=== PATIENT | male | born 1965 | race Two or more races ===

== ENCOUNTER → 2016-06-25 | Outpatient (CLI) | payer OTHER ==
--- NOTE | 2016-06-26 18:47 | RADRPT ---
PROCEDURE: XR Knees. CLINICAL INDICATION: Bilateral knee pain. TECHNIQUE: Total of eight views. Weightbearing frontal, oblique, and lateral views of the both kn ees. Patellar views of both knees. COMPARISON: No prior study is available for comparison. FINDINGS: There is no fracture or dislocation. The soft tissues are normal. There are degenerative changes with osteophytes arising from all 3 joint compartment margins bilater ally. There is bilateral medial joint compartment narrowing, subarticular sclerosis, and deformity. There is no lytic or blastic lesion. There is no radiopaque foreign body. IMPRESSION: 1. Severe degenerative changes of both knees. RPTAT: QQ .Edmar Bermeo MD, MD Date Time Electronically viewed and signed by .Edmar Bermeo MD, MD on 06/26/2016 18:46 .R/
== END | disposition home or self-care (01) ==
LOC: HKI 14:49
PROVIDERS: ATTEND Orthopaedic Surgery
DX: M25.561 Pain in right knee (principal); M25.562 Pain in left knee; M17.0 Bilateral primary osteoarthritis of knee; E66.01 Morbid (severe) obesity due to excess calories
CPT/HCPCS: 73564; Z7500; G0463

== ENCOUNTER 2016-09-16 04:21 | Inpatient (IN) | payer OTHER ==
[~2016-09-16] VITALS: Ht 175.3 cm; Wt 122.0 kg
[2016-09-16] MEDS ORDERED: ONDANSETRON 4 MG INJ IV STA (04:45)
[2016-09-16] MEDS ORDERED: HYDROmorphONE 1 MG/ML SYG IV STA (04:45)
[2016-09-16] MEDS ORDERED: ERTAPENEM SODIUM 1 GM in SOD CHLORIDE 0.9% 100 ML IVPB ONE (05:00)
--- NOTE | 2016-09-16 05:02 | ERA ---
ER Documentation Chief Complaint Date/Time DATE: 09/16/16 TIME: 04:59 Chief Complaint left lower leg swelling w/ redness / warm to touch HPI This a 51-year-old male who is complaining of fever over the past 3 days with gradual worsening of right leg swelling and redness. When the pain redness from the proximal left house down to the left ankle. Denies any chest pain or shortness of breath. No history of DVT in the past. He said chills and malaise with a somewhat lack of appetite. No numbness or weakness in the leg. ROS All systems reviewed and are negative except as per history of present illness. Medications Home Meds No Active Prescriptions or Reported Meds Allergies Allergies: Coded Allergies: No Known Allergy (Unverified , 09/16/16) PMhx/Soc Medical and Surgical Hx: pt denies Medical Hx, pt denies Surgical Hx History of Surgery: No Anesthesia Reaction: No Hx Neurological Disorder: No Hx Respiratory Disorders: No Hx Cardiac Disorders: No Hx Psychiatric Problems: No Hx Miscellaneous Medical Probl: No Hx Alcohol Use: No Hx Substance Use: No Hx Tobacco Use: No Smoking Status: Former smoker FmHx Family History: No coronary disease Physical Exam Vitals Vital Signs Date Time Temp Pulse Resp B/P Pulse Ox O2 Delivery O2 Flow Rate FiO2 09/16/16 04:27 98.8 106 20 148/103 100 Physical Exam Const: Well-developed, well-nourished Head: Atraumatic, normocephalic Eyes: Normal Conjunctiva, PERRLA, EOMI, normal sclera, no nystagmus ENT: Normal External Ears, Nose and Mouth, moist mucus membranes. Neck: Full range of motion. No meningismus, no lymphadenopathy. Resp: Clear to auscultation bilaterally, no wheezing, rhonchi, rales Cardio: Regular rate and rhythm, no murmurs, S1 S2 present Abd: Soft, non tender x 4, non distended. Normal bowel sounds, no guarding or rebound, no pulsitile abdominal masses or bruits Skin: No petechiae or rashes, no ecchymosis , no maculopapular rash, there is erythema of the left house that is not finally demarcated Back: No midline or flank tenderness Ext: No cyanosis, or edema, FROM x 4, normal inspection, neurovascularly intact x 4 left leg has cellulitic appearance to the house that is warm and tender to touch, is circumferential Neur: Awake and alert, STR 5/5 x 4, sensation intact x 4, no focal findings, cerebellum intact Psych: Normal Mood and Affect Results 24 hrs Current Medications Medications (Trade) Dose Ordered Sig/Joseph Route PRN Reason Start Time Stop Time Status Last Admin Dose Admin Hydromorphone HCl (Dilaudid) 1 mg ONCE STAT IV 09/16/16 04:45 09/16/16 04:47 DC 09/16/16 05:13 Ondansetron HCl 4 mg 4 mg ONCE STAT IV 09/16/16 04:45 09/16/16 04:47 DC 09/16/16 05:12 Ertapenem/Sodium Chloride (Invanz/NS) 100 ml @ 200 mls/hr ONCE ONCE IVPB 09/16/16 05:00 09/16/16 05:29 DC Procedures/MDM Patient had blood work blood cultures, he also received intravenous Invanz 1 g IV We will obtain a sonogram to confirm there is no DVT. We will admit for left leg circumferential cellulitis Sonogram of the left leg does not reveal any DVT. Departure Diagnosis: Primary Impression: Left leg cellulitis Condition: Stable ASA SHERIDAN DO Sep 16, 2016 05:01
[2016-09-16 05:40] LABS: ADD SCAN DIFF NO
[2016-09-16 05:41] LABS: ABNORMAL IP MESSAGE 1; BASOPHILS % 0.2 % (0.0-2.0); EOSINOPHILS # 0.3 10^3/ul (0.0-0.5); EOSINOPHILS % 2.2 % (0.0-7.0); HEMATOCRIT 37.1 % (42.0-52.0); HEMOGLOBIN 12.2 g/dl (14.0-18.0); LYMPHOCYTES % 15.9 % (15.0-51.0); MEAN CORPUSCULAR HEMOGLOBIN 29.8 pg (29.0-33.0); MEAN CORPUSCULAR HGB CONC 32.9 g/dl (32.0-37.0); MEAN CORPUSCULAR VOLUME 90.7 fl (82.0-101.0); MEAN PLATELET VOLUME 9.4 fl (7.4-10.4); MONOCYTES % 16.1 % (0.0-11.0); NEUTROPHILS % 64.4 % (39.0-77.0); PLATELET COUNT 286 10^3/UL (140-415); RED BLOOD COUNT 4.09 10^6/ul (4.70-6.10); RED CELL DISTRIBUTION WIDTH 12.2 % (11.5-14.5); WHITE BLOOD COUNT 12.4 10^3/ul (4.8-10.8)
[2016-09-16 06:00] LABS: ALBUMIN 3.3 g/dl (3.3-4.9); ALBUMIN/GLOBULIN RATIO 0.7; BILIRUBIN,INDIRECT 0.2 mg/dl (0-1.1); BILIRUBIN,TOTAL 0.2 mg/dl (0.2-1.3); CALCIUM 8.4 mg/dl (8.4-10.2); CREATININE 1.17 mg/dl (0.61-1.24); POTASSIUM 3.6 mmol/L (3.5-5.1)
[2016-09-16] MEDS ORDERED: ACETAMINOPHEN 325 MG TAB PO PRN (06:00)
[2016-09-16] MEDS ORDERED: ONDANSETRON 4 MG INJ IV PRN ×2 (06:00→08:30)
--- NOTE | 2016-09-16 06:11 | RADRPT ---
PROCEDURE: ULTRASOUND LEFT LOWER EXTREMITY VENOUS CLINICAL INDICATION: 51-year-old male with left lower extremity pain and swelling. TECHNIQUE: Multiple sonographic images of the left lower extremity deep venous system was obtained utilizing grayscale, color-flow, compressive sonography and doppler imaging with augmentation. The images were reviewed on a PACS workstation. COMPARISON: None. FINDINGS: There is normal compressibility and flow within the left common femoral, deep femoral, superficial f emoral, popliteal, posterior tibial and peroneal veins. IMPRESSION: No sonographic evidence for left lower extremity deep venous thrombosis. .Chuckie Fernández MD, MD Date Time Electronically viewed and signed by .Chuckie Fernández MD, on 09/16/2016 06:11 .Roxanna
[2016-09-16 06:36] VITALS: TEMP 98.1
[2016-09-16] MEDS ORDERED: VANCOMYCIN IV PER PHARMACY XX SCH (08:30)
[2016-09-16] MEDS ORDERED: NACL 0.9% 3 ML SYG IV SCH (08:30)
[2016-09-16] MEDS ORDERED: ALBUTEROL/IPRATROPIUM (NEB) 3 ML AMP HHN PRN (08:30)
[2016-09-16 08:47] VITALS: BP 129/82; RESP 19
[2016-09-16] MEDS ORDERED: CEFEPIME 1GM/50 ML (PMX) 50 ML IVPB SCH (09:00)
[2016-09-16 09:20] VITALS: Ht 175.3 cm; Wt 122.0 kg
--- NOTE | 2016-09-16 09:41 | HP ---
Date/Time of Note Date/Time of Note DATE: 09/16/16 TIME: 09:33 Assessment/Plan VTE Prophylaxis VTE Prophylaxis Intervention: heparin Lines/Catheters IV Catheter Type (from Nrsg): Saline Lock Assessment/Plan Assessment/Plan IMPRESSION 1. LLE Cellulitis 2. Sepsis, as evidenced by leukocytosis and tachycardia 2/2 above 3. Severe Bilateral Osteoarthritis 4. Hx of Gastritis 5. Morbid Obesity with BMI of ~ 40 PLAN Broad spectrum abx f/u culture results pain mgmt pt being followed with Dr. Blevins regarding osteo. He has been losing weight in order to have knee replacement Physical Therapy Eval HPI/ROS Admit Date/Time Admit Date/Time Sep 16, 2016 at 05:44 Hx of Present Illness This is a 51 yo morbidly obese male with hx of severe bilateral osteoarthritis, gastritis who presented to ER c/o LLE swelling, redness and pain. Symptom has gotten progressively worse over the last few days. Denied CP, SOB, fever, chills , N/V. In ER doppler u/s was neg for DVT. He was given abx. PMH/Family/Social Social History Smoking Status: Former smoker Exam/Review of Systems Vital Signs Vitals Vital Signs Date Time Temp Pulse Resp B/P Pulse Ox O2 Delivery O2 Flow Rate FiO2 09/16/16 08:47 97.6 82 19 129/82 98 09/16/16 06:36 Nasal Cannula 2.0 Exam Constitutional: alert, oriented, other (obese) Head: atraumatic, normocephalic Eyes: EOMI, PERRL Respiratory: clear to auscultation, normal air movement Cardiovascular: other (tachycardic with regular rhythm) Gastrointestinal: non-tender, soft Extremities: other (LLE circumfirential erythema, swelling, tenderness, warmth to touch) Labs Result Diagram: 09/16/16 0510 09/16/16 0510 Medications Medications Current Medications Ondansetron HCl (Zofran Inj) 4 mg Q6H PRN IV NAUSEA AND/OR VOMITING; Start at 08:30 Acetaminophen (Tylenol Tab) 650 mg Q6H PRN PO PAIN LEVEL 1-3 OR FEVER; Start at 08:30 Morphine Sulfate (morphine) 2 mg Q4H PRN IV SEVERE PAIN LEVEL 7-10; Start 09/16 at 08:30 Enoxaparin Sodium 40 mg 40 mg DAILY SC ; Start 09/16/16 at 09:00 Cefepime HCl (Maxipime 1gm/50 ml (Pmx)) 50 ml @ 100 mls/hr Q12 IVPB ; Start at 09:00 JESSIE BALBUENA MD Sep 16, 2016 09:41
[2016-09-16] MEDS: ENOXAPARIN 40 MG/0.4 ML SYG SC SCH (09:45)
[2016-09-16] MEDS ORDERED: POTASSIUM CHLORIDE (SR) 20 MEQ TAB PO STA (10:34)
[2016-09-16] MEDS ORDERED: VANCOMYCIN 2 GM in SOD CHLORIDE 0.9% 500 ML IVPB SCH ×2 (12:00→18:00)
[2016-09-16] MEDS: ACETAMINOPHEN 325 MG TAB PO PRN (14:25)
[2016-09-16] MEDS: PIPER-TAZO 3.375 GM IV (PMX) 100 ML IVPB SCH ×2 (14:25→21:46)
[2016-09-16 14:45] VITALS: BP 134/86; RESP 21
--- NOTE | 2016-09-16 16:42 | PN ---
Date/Time of Note Date/Time of Note DATE: 09/16/16 TIME: 16:38 Assessment/Plan VTE Prophylaxis VTE Prophylaxis Intervention: LMWH Lines/Catheters IV [facility] Saline Lock Assessment/Plan Chief Complaint/Hosp Course Patient is a 51-year-old male with past medical history of osteoarthritis who presents to [facility] for left-sided lower extremity swelling and pain. Found to have cellulitis. Assessment Left lower extremity cellulitis Sepsis, resolving Severe bilateral ostia arthritis Lower extremity edema Morbid obesity Plan -Broad-spectrum antibiotics for now -No purulence or area for wound culture found -Pending echo -If patient remains stable for 24 hours will DC with oral antibiotics to follow- up with outpatient physician. Bryan Ayoub DO Problems: Subjective 24 Hr Interval Summary Free Text/Dictation no acute complaints except for leg pain. Exam/Review of Systems Vital Signs Vitals Vital Signs Date Time Temp Pulse Resp B/P Pulse Ox O2 Delivery O2 Flow Rate FiO2 09/16/16 14:45 98.7 96 21 134/86 95 09/16/16 06:36 Nasal Cannula 2.0 Exam Physical exam General: Patient is laying in bed and answers questions appropriately Mentation: Patient is alert and oriented 4, Head: Normocephalic atraumatic Eyes: EOMI, pupils reactive to light Neck: Supple, nontender, midline Respiratory: Clear to auscultation bilaterally Cardiovascular: regular rate, no obvious murmurs Gastrointestinal: non-tender to palpation, bowel sounds heard. Neurological: Moves all extremities spontaneously Skin: RLE mild 2+ edema, LLE erythematous and edematous, enlarged. demarcated line drawn. Results Result Diagram: 09/16/16 0510 09/16/16 0510 Results 24 hrs Laboratory Tests Test 09/16/16 05:10 White Blood Count 12.4 H Red Blood Count 4.09 L Hemoglobin 12.2 L Hematocrit 37.1 L Mean Corpuscular Volume 90.7 Mean Corpuscular Hemoglobin 29.8 Mean Corpuscular Hemoglobin Concent 32.9 Red Cell Distribution Width 12.2 Platelet Count 286 Mean Platelet Volume 9.4 Neutrophils % 64.4 Lymphocytes % 15.9 Monocytes % 16.1 H Eosinophils % 2.2 Basophils % 0.2 Nucleated Red Blood Cells % 0.0 Neutrophils # 8.0 H Lymphocytes # 2.0 Monocytes # 2.0 H Eosinophils # 0.3 Basophils # 0.0 Nucleated Red Blood Cells # 0.0 Sodium Level 145 H Potassium Level 3.6 Chloride Level 102 Carbon Dioxide Level 29 Anion Gap 18 H Blood Urea Nitrogen 17 Creatinine 1.17 Glucose Level 89 Calcium Level 8.4 Total Bilirubin 0.2 Direct Bilirubin 0.00 Indirect Bilirubin 0.2 Aspartate Amino Transf (AST/SGOT) 49 H Alanine Aminotransferase (ALT/SGPT) 58 Alkaline Phosphatase 298 H Total Protein 8.0 Albumin 3.3 Globulin 4.70 H Albumin/Globulin Ratio 0.70 Medications Medications Current Medications Ondansetron HCl (Zofran Inj) 4 mg Q6H PRN IV NAUSEA AND/OR VOMITING; Start at 08:30 Acetaminophen (Tylenol Tab) 650 mg Q6H PRN PO PAIN LEVEL 1-3 OR FEVER Last administered on 09/16/16 14:25; Admin Dose 650 MG; Start 09/16/16 at 08:30 Morphine Sulfate (morphine) 2 mg Q4H PRN IV SEVERE PAIN LEVEL 7-10; Start 09/16 at 08:30 Enoxaparin Sodium 40 mg 40 mg DAILY SC Last administered on 09/16/16 09:45; Admin Dose 40 MG; Start 09/16/16 at 09:00 Piperacillin Sod/ Tazobactam Sod 100 ml @ 200 mls/hr Q8 IVPB Last administered on 09/16/16 14:25; Admin Dose 200 MLS/HR; Start 09/16/16 at 14:00 Vancomycin HCl/ Sodium Chloride (Vancocin/NS) 250 ml @ 83.333 mls/ hr Q12H IVPB ; Start 09/17/16 at 01:00 BRYAN AYOUB Sep 16, 2016 16:42
[2016-09-16] MEDS: morphine 2 MG INJ IV PRN ×2 (20:45→21:46)
[2016-09-16 21:27] VITALS: BP 126/85; RESP 18
[2016-09-17] MEDS: morphine 2 MG INJ IV PRN ×2 (00:50→06:06)
[2016-09-17] MEDS ORDERED: VANCOMYCIN 1.25 GM in SOD CHLORIDE 0.9% 250 ML IVPB SCH (01:00)
[2016-09-17] MEDS: ACETAMINOPHEN 325 MG TAB PO PRN ×2 (02:32→10:01)
[2016-09-17 02:36] VITALS: BP 144/107; RESP 17
[2016-09-17 03:10] VITALS: BP 150/98; PULSE 99
[2016-09-17] MEDS: PIPER-TAZO 3.375 GM IV (PMX) 100 ML IVPB SCH (05:16)
[2016-09-17 06:21] LABS: ADD SCAN DIFF NO
[2016-09-17 06:51] LABS: CALCIUM 8.3 mg/dl (8.4-10.2); CREATININE 1.1 mg/dl (0.61-1.24); MAGNESIUM 1.9 mg/dl (1.7-2.5); PHOSPHORUS 3.8 mg/dl (2.5-4.9); POTASSIUM 4.8 mmol/L (3.5-5.1)
[2016-09-17 07:02] LABS: ABNORMAL IP MESSAGE 1; BASOPHILS % 0.2 % (0.0-2.0); EOSINOPHILS # 0.4 10^3/ul (0.0-0.5); HEMATOCRIT 38.9 % (42.0-52.0); HEMOGLOBIN 12.2 g/dl (14.0-18.0); LYMPHOCYTES # 2.3 10^3/ul (0.8-2.9); LYMPHOCYTES % 19.7 % (15.0-51.0); MEAN CORPUSCULAR HEMOGLOBIN 29.2 pg (29.0-33.0); MEAN CORPUSCULAR HGB CONC 31.4 g/dl (32.0-37.0); MEAN CORPUSCULAR VOLUME 93.1 fl (82.0-101.0); MEAN PLATELET VOLUME 9.3 fl (7.4-10.4); MONOCYTE # 1.8 10^3/ul (0.3-0.9); MONOCYTES % 14.8 % (0.0-11.0); NEUTROPHIL # 7.2 10^3/ul (1.6-7.5); NEUTROPHILS % 60.9 % (39.0-77.0); PLATELET COUNT 321 10^3/UL (140-415); RED BLOOD COUNT 4.18 10^6/ul (4.70-6.10); RED CELL DISTRIBUTION WIDTH 12.3 % (11.5-14.5); WHITE BLOOD COUNT 11.8 10^3/ul (4.8-10.8)
[2016-09-17 08:22] VITALS: BP 133/84; RESP 18
[2016-09-17] MEDS: ENOXAPARIN 40 MG/0.4 ML SYG SC SCH (09:50)
[2016-09-17 10:04] VITALS: BP 130/80; PULSE 92; RESP 18
--- NOTE | 2016-09-17 10:45 | PDOCDIS ---
Discharge Instructions DIAGNOSIS Discharge Diagnosis acute cellulitis CONDITION Patient Condition: Stable - Please take antibiotics as directed for full duration ACTIVITY: Activity Restrictions: Slowly Increase Activity FOLLOW UP/APPOINTMENTS Follow-up Plan Follow up with your primary care provider as soon as possible ALE AYOUB Sep 17, 2016 10:44
[2016-09-17] MEDS ORDERED: CEPH500C PO (11:00)
[2016-09-17] MEDS ORDERED: HYDR-906 PO (11:00)
[2016-09-17] MEDS ORDERED: Trimethoprim/Sulfamethox (Ds) PO (11:00)
[2016-09-17] MEDS ORDERED: TRIMETHOPRIM/SULFAMETHOX (DS) TAB PO SCH (11:00)
--- NOTE | 2016-09-17 11:09 | DS ---
Date/Time of Note Date/Time of Note DATE: 09/17/16 TIME: 11:08 Discharge Summary Admission/Discharge Info Admit Date/Time Sep 16, 2016 at 05:44 Discharge Date/Time Discharge Diagnosis acute cellulitis Patient Condition: Stable Hx of Present Illness This is a 51 yo morbidly obese male with hx of severe bilateral osteoarthritis, gastritis who presented to ER c/o LLE swelling, redness and pain. Symptom has gotten progressively worse over the last few days. Denied CP, SOB, fever, chills , N/V. In ER doppler u/s was neg for DVT. He was given abx. Hospital Course Assessment Left lower extremity cellulitis, resolving Sepsis, resolved Severe bilateral osteoarthritis Lower extremity edema Morbid obesity Patient is a 51-year-old male with past medical history of osteoporosis who presents to [facility] for lower extremity pain and swelling. Left lower leg found to have cellulitis. Patient was originally admitted for septic criteria, however quickly resolved and patient was monitored over for a 24-hour period. Patient has good outpatient follow-up with the orthopedic surgeon as well as her primary care provider and will be discharged on Bactrim and Keflex for cellulitis for 10 days. Patient has been afebrile for over 24 hours and white count is less than 12 at this time patient feels well enough to go home. Patient explicitly explained to come back to ED if symptoms continue. Also of note lower extremity venous ultrasound negative for DVT. Bryan Ayoub DO Home Meds Active Scripts Hydrocodone/Acetaminophen ([place] 5-325 Tablet) 1 Each Tablet, 1 EACH PO Q8 Y for PAIN for 7 Days, #21 TAB Prov:BRYAN AYOUB 09/17/16 [Trimethoprim/Sulfamethox (Ds)] 1 TAB TAB No Conflict Check, 1 TAB PO BID for 10 Days, #20 TAB Prov:BRYAN AYOUB 09/17/16 Cephalexin* (Cephalexin*) 500 Mg Capsule, 500 MG PO Q6 for 10 Days, #40 CAP Prov:BRYAN AYOUB 09/17/16 Follow-up Plan follow up with primary care provider as soon as possible Primary Care Provider Aamir Abad Time spent on discharge: > 30 minutes Pending Labs Laboratory Tests Test 09/17/16 05:34 White Blood Count 11.810^3/ul (4.8-10.8) Red Blood Count 4.1810^6/ul (4.70-6.10) Hemoglobin 12.2g/dl (14.0-18.0) Hematocrit 38.9% (42.0-52.0) Mean Corpuscular Volume 93.1fl (82.0-101.0) Mean Corpuscular Hemoglobin 29.2pg (29.0-33.0) Mean Corpuscular Hemoglobin Concent 31.4g/dl (32.0-37.0) Red Cell Distribution Width 12.3% (11.5-14.5) Platelet Count 23870^3/UL (140-415) Mean Platelet Volume 9.3fl (7.4-10.4) Neutrophils % 60.9% (39.0-77.0) Lymphocytes % 19.7% (15.0-51.0) Monocytes % 14.8% (0.0-11.0) Eosinophils % 3.0% (0.0-7.0) Basophils % 0.2% (0.0-2.0) Neutrophils # 7.210^3/ul (1.6-7.5) Lymphocytes # 2.310^3/ul (0.8-2.9) Monocytes # 1.810^3/ul (0.3-0.9) Eosinophils # 0.410^3/ul (0.0-0.5) Basophils # 0.010^3/ul (0.0-0.1) Nucleated Red Blood Cells # 0.010^3/ul (0.0-0.0) Sodium Level 144mmol/L (135-144) Potassium Level 4.8mmol/L (3.5-5.1) Chloride Level 101mmol/L (97-110) Carbon Dioxide Level 30mmol/L (21-31) Anion Gap 18 (8-16) Blood Urea Nitrogen 12mg/dl (7-20) Creatinine 1.10mg/dl (0.61-1.24) Glucose Level 116mg/dl (70-220) Calcium Level 8.3mg/dl (8.4-10.2) Phosphorus Level 3.8mg/dl (2.5-4.9) Magnesium Level 1.9mg/dl (1.7-2.5) BRYAN AYOUB Sep 17, 2016 11:09
[2016-09-17] MEDS ORDERED: CEPHALEXIN 500 MG CAP PO SCH (12:00)
--- NOTE | 2016-09-17 18:56 | RADRPT ---
Echocardiogram Report Patient Name: PARVIN FUNK Gender: Male Date: 1965 Study Date: 17-Sep-2016 Clinical Support Nurse: Marlene Mejia [facility] Location: 2257 Ref. Physician: ALE AYOUB Quality: Good Procedures: Transthoracic echocardiogram with complete 2D, M-Mode, and doppler examination. Indications: LE swelling. 2D/M Mode Doppler Measurement Value Normal Ranges Measurement Value Normal Ranges LVIDd 2D 5.9 3.5 - 5.6 cm AIMEE Vmax 2.9 cm2 LVIDs 2D 4.0 2.1 - 4.1 cm AIMEE VTI 2.9 cm2 LVPWd 2D 1.0 0.6 - 1.1 cm AV Peak Chicho 1.5 m/sec IVSd 2D 1.0 0.6 - 1.1 cm AV Peak PG 8.9 mmHg AoR Diam 2D 3.3 2.0 - 3.7 cm LVOT Peak Chicho 1.1 m/sec EDV 2D 172.4 cm3 LVOT Peak PG 4.7 mmHg ESV 2D 63.1 cm3 MV E Peak Chicho 1.0 m/sec LA Dimen 2D 4.4 2.3 - 4.0 cm MV A Peak Chicho 1.2 m/sec LVOT Diam 2.3 cm MV E/A 0.8 MV Decel Time 183 msec MV Decel [place] 5 MV E/A 0.8 TR Peak Chicho 3.3 m/sec TR Peak PG 43.4 mmHg RVSP 46.0 mmHg Findings Left Ventricle: Lower limits of normal systolic function. Normal left ventricular cavity size. Normal left ventricular wall thickness. Ejection fraction is visually estimated at 50 %. Tissue Doppler/Mitral Doppler indices are consistent with impaired relaxation (Stage I diastolic dysfunction). Right Ventricle: Normal right ventricular size. Normal right ventricular systolic function. Left Atrium: There is mild enlargement of left atrium. Right Atrium: The right atrium is normal in size. Mitral Valve: Mitral valve leaflets appear mildly thickened. Mild mitral annular calcification. Trace mitral regurgitation. Aortic Valve: Normal appearance of the aortic valve. No significant aortic stenosis or insufficiency. Tricuspid Valve: Normal appearance of the tricuspid valve. Estimated peak PA systolic pressure 46 mmHg. There is mild tricuspid regurgitation. Pulmonic Valve: Normal pulmonic valve appearance. There is trace pulmonic regurgitation. Pericardium: Normal pericardium with no significant pericardial effusion. Aorta: Normal aortic root. IVC: Normal size and normal respiratory collapse consistent with normal right atrial pressure. Conclusions 1.Lower limits of normal systolic function. Normal left ventricular cavity size. Normal left ventricular wall thickness. Ejection fraction is visually estimated at 50 %. Tissue Doppler/Mitral Doppler indices are consistent with impaired relaxation (Stage I diastolic dysfunction). 2.There is mild enlargement of left atrium. 3.Mitral valve leaflets appear mildly thickened. Mild mitral annular calcification. Trace mitral regurgitation. 4.Normal appearance of the tricuspid valve. Estimated peak PA systolic pressure 46 mmHg. There is mild tricuspid regurgitation. 5.Normal pulmonic valve appearance. There is trace pulmonic regurgitation. Electronically Signed By: Prakash Hudson 17-Sep-2016 18:55:15 -0700 Patient Name: PARVIN FUNK Study Date: 17-Sep-2016 [id number]
== END 2016-09-17 14:02 | disposition home or self-care (01) | DRG 872 ==
LOC: E/R 04:21 → PP2 05:44
PROVIDERS: ADMIT Internal Medicine; ATTEND Internal Medicine
DX: A41.9 Sepsis, unspecified organism (principal); Z68.41 Body mass index [BMI] 40.0-44.9, adult; L03.116 Cellulitis of left lower limb; E66.01 Morbid (severe) obesity due to excess calories; K29.70 Gastritis, unspecified, without bleeding; M19.90 Unspecified osteoarthritis, unspecified site; R60.9 Edema, unspecified
CPT/HCPCS: 36415; 80048; 80053; 83735; 84100; 85025; 87040; 93306; 93971; 96374; 96375; J0692; J1170; J1335; J1650; J2270; J2405; J2543; J3370; J7040; J7050

== ENCOUNTER → 2016-11-09 | Outpatient (CLI) | payer OTHER ==
[~2016-11-09] MED LIST: CEPH500C PO; HYDR-906 PO; Trimethoprim/Sulfamethox (Ds) PO
--- NOTE | 2016-11-10 05:39 | HKNOTE ---
DATE OF SERVICE: 11/09/2016 MAIN COMPLAINT: Bilateral knee pain. HISTORY OF PRESENT ILLNESS: This is a 51-year-old male with history of bilateral knee osteoarthritis. He has seen Dr. Vishal Walls previously. He has quit smoking. He has lost over 50 pounds. He is complaining of severe pain in bilateral knees. It is interfering with his activities of daily living. He is unable to ambulate or go down stairs. He does not use any assistive devices. He denies any hip pain, groin pain or back pain. PAST MEDICAL HISTORY: Hypertension. MEDICATIONS: None. PAST SURGICAL HISTORY: Gastric sleeve. SOCIAL HISTORY: Denies current tobacco, alcohol, or drug use. FAMILY HISTORY: None. ALLERGIES: NO KNOWN DRUG ALLERGIES. SYSTEMS REVIEW: Negative. PHYSICAL EXAMINATION: GENERAL: Patient is in no acute distress. He is alert, oriented x4. GAIT: Antalgic gait with no use of assistive devices. EXTREMITIES: Right knee: Varus deformity, 30-115 degrees range of motion with crepitus. Medial and lateral joint line tenderness. Negative Maria E's. Negative anterior drawer. Negative posterior drawer. Stable to varus-valgus stress. Negative Mely's. Left knee: Neutral alignment, 10-120 degrees range of motion. Stable to varus-valgus stress. Negative Maria E's. Negative anterior drawer. Negative posterior drawer. Negative Mely's. NEUROLOGIC: Bilateral lower extremities have 5/5 strength of quadriceps, tibialis anterior, gastroc soleus. VASCULAR: Palpable dorsalis pedis and posterior tibialis pulses. IMAGIN. X-rays right knee: 3 views of the right knee demonstrate severe end-stage degenerative joint disease. 2. X-rays left knee: 3 views of the left knee demonstrate severe end-stage osteoarthritis of the left knee. ASSESSMENT: A 51-year-old male with end-stage osteoarthritis of bilateral knees. PLAN: Patient has failed nonoperative management. We will request authorization for a right total knee arthroplasty. He will follow up in 6 weeks. He will require preoperative clearance prior to surgery. He will continue weight loss. Dictated By: Ced Ma MD /andre/natalya /Document#: [id number]
== END | disposition home or self-care (01) ==
LOC: HKI 14:03
PROVIDERS: ATTEND Orthopaedic Surgery Adult Reconstructive Orthopaedic Surgery
DX: M17.0 Bilateral primary osteoarthritis of knee (principal)
CPT/HCPCS: G0463

== ENCOUNTER → 2017-01-24 | Outpatient (CLI) | payer OTHER ==
--- NOTE | 2017-01-24 15:25 | HKNOTE ---
DATE OF SERVICE: 01/24/2017 Mr. Berrios was seen for his preoperative evaluation. I discussed the risks associated with surgery, which include but are not limited to infection, deep venous thrombosis, pulmonary embolism, damage t o nerves, including the peroneal nerve, damage to arteries and veins impairing function and requirin g repair, wear of prosthesis, loosening of prosthesis, need for revision surgery, heart attack, stro ke, need for blood transfusion, risks associated with anesthesia and even . I explained to him that given his weight, he is at a higher risk for infection as well as postoperative complications. Informed consent was obtained. All questions were answered to satisfaction. He was given a presc ription for [place] 5/325 with 50 tablets and Tramadol 50 tablets. Dictated By: MOR MONTANO/CORBY Conf#: [id number] DID#: [id number]
== END | disposition home or self-care (01) ==
LOC: HKI 08:50
PROVIDERS: ATTEND Orthopaedic Surgery Adult Reconstructive Orthopaedic Surgery
DX: Z01.818 Encounter for other preprocedural examination (principal)
CPT/HCPCS: G0463

== ENCOUNTER 2017-01-26 05:32 | Inpatient (IN) | payer OTHER ==
[2017-01-26] VITALS (35 sets, daily range): BP systolic 90–142; BP diastolic 47–91; PULSE 81–114; RESP 14–22; Ht 175.3 cm; Wt 117.6 kg
[~2017-01-26] VITALS: Ht 175.3 cm; Wt 117.6 kg
[2017-01-26] MEDS ORDERED: CEFAZOLIN 2 GM/50 ML (PMX) 50 ML IVPB ONE (06:45)
[2017-01-26] MEDS ORDERED: LANSOPRAZOLE 30 MG CAP PO ONE (06:45)
[2017-01-26] MEDS ORDERED: oxyCODONE (CR) 10 MG TAB [oxyCONTIN] PO ONE (06:45)
[2017-01-26] MEDS ORDERED: ACETAMINOPHEN 1000MG/100ML IV 100 ML IVPB ONE (06:45)
[2017-01-26] MEDS ORDERED: CELECOXIB 200 MG CAP PO ONE (06:45)
[2017-01-26] MEDS ORDERED: DEXAMETHASONE 4 MG/ML 1 ML INJ IV ONE (06:45)
[2017-01-26] MEDS ORDERED: LACTATED RINGER'S 1,000 ML IV* SCH (06:45)
[2017-01-26] MEDS ORDERED: TRANEXAMIC ACID 2,000 MG in SOD CHLORIDE 0.9% 100 ML IVPB ONE (06:45)
[2017-01-26] MEDS ORDERED: ONDANSETRON 4 MG INJ IV ONE (06:45)
--- NOTE | 2017-01-26 06:46 | HPN ---
Date/Time of Note Date/Time of Note DATE: 01/26/17 TIME: 06:46 Interval H&P Admission Note Pt. seen H&P reviewed: No system changes DAMION ALVARADO PA-C Jan 26, 2017 06:46
[2017-01-26] MEDS ORDERED: SOD CHLORIDE 0.9% IVPB ONE ×2 (07:00)
[2017-01-26] MEDS ORDERED: TRANEXAMIC ACID IVPB ONE ×2 (07:00)
[2017-01-26] MEDS ORDERED: BACITRACIN 50000 UNITS INJ ONE (07:01)
[2017-01-26] MEDS ORDERED: POLYMYXIN B 500000 UNIT INJ ONE (07:03)
[2017-01-26] MEDS ORDERED: GLYCOPYRROLATE 0.4 MG INJ ONE (07:24)
[2017-01-26] MEDS ORDERED: PROPOFOL 20 ML ONE (07:24)
[2017-01-26] MEDS ORDERED: CEFAZOLIN 1 GM INJ ONE (07:24)
[2017-01-26] MEDS ORDERED: MIDAZOLAM 1 MG/ML 2 ML INJ ONE (07:24)
[2017-01-26] MEDS ORDERED: NEOSTIGMINE 3 MG/3 ML SYRINGE ONE (07:24)
[2017-01-26] MEDS ORDERED: FENTAnyl 50 MCG/ML VIAL ONE (07:24)
[2017-01-26] MEDS ORDERED: ROCURONIUM 50 MG INJ ONE (07:24)
[2017-01-26] MEDS ORDERED: PROPOFOL 100 ML ONE (07:25)
[2017-01-26] MEDS ORDERED: DEXAMETHASONE 4 MG/ML 1 ML INJ ONE (07:25)
[2017-01-26] MEDS ORDERED: ONDANSETRON 4 MG INJ ONE (07:25)
[2017-01-26] MEDS ORDERED: ETOMIDATE 20 MG INJ ONE (07:25)
[2017-01-26] MEDS ORDERED: ROPIVACAINE 0.5 % 30 ML VIAL ONE (07:27)
[2017-01-26] MEDS ORDERED: morphine SULFATE/PF (10 MG/10 ML) INJ ONE (07:27)
[2017-01-26] MEDS: HIP PAIN COCKTAIL (CEFUROXIME) INJ SCH ×14 (07:30→08:55)
[2017-01-26] MEDS ORDERED: morphine 2 MG INJ IV PRN (08:00)
[2017-01-26] MEDS ORDERED: MEPERIDINE 25 MG INJ IV PRN (08:00)
[2017-01-26] MEDS ORDERED: FENTAnyl 50 MCG/ML VIAL IV PRN ×3 (08:00)
[2017-01-26] MEDS ORDERED: HYDROmorphONE (0.2 MG/ML) 10ML SYG IV PRN ×3 (08:00)
[2017-01-26] MEDS ORDERED: EPHEDrine SULFATE 50 MG/5 ML SYG IV PRN (08:00)
[2017-01-26] MEDS ORDERED: morphine 4 MG/ML VIAL IV PRN (08:00)
[2017-01-26] MEDS ORDERED: DIPHENHYDRAMINE 50 MG INJ IV PRN ×2 (08:00)
[2017-01-26] MEDS ORDERED: ALBUTEROL 0.083% (NEB) 2.5 MG/3 ML AMP HHN PRN (08:00)
[2017-01-26] MEDS ORDERED: hydrALAzine 20 MG INJ IV PRN (08:00)
[2017-01-26] MEDS ORDERED: LABETALOL HCL 20MG INJ IV PRN (08:00)
[2017-01-26] MEDS ORDERED: NALOXONE (0.4 MG/ML) INJ IV PRN ×2 (08:00→11:00)
[2017-01-26] MEDS ORDERED: IPRATROPIUM (NEB) 0.5 MG/2.5 ML AMP HHN PRN (08:00)
[2017-01-26] MEDS ORDERED: ZOLPIDEM 5 MG TAB PO PRN ×2 (08:00→11:00)
[2017-01-26] MEDS ORDERED: TRIMETHOBENZAMIDE 100 MG/ML VIAL IM PRN ×2 (08:00)
[2017-01-26] MEDS ORDERED: ONDANSETRON 4 MG INJ IV PRN ×2 (08:00)
[2017-01-26] MEDS ORDERED: OXYCODONE/ACETAMINOPHEN (5/325) TAB PO PRN ×2 (08:00)
[2017-01-26] MEDS ORDERED: MIDAZOLAM 1 MG/ML 2 ML INJ IV PRN (08:00)
[2017-01-26] MEDS ORDERED: NALBUPHINE HCL (10 MG/1 ML) INJ IV PRN (08:00)
[2017-01-26] MEDS ORDERED: POLYMYXIN/BACITRACIN 1L IRRIG ONE (08:08)
[2017-01-26] MEDS ORDERED: ALBUMIN HUMAN 5% 500 ML ONE (10:34)
[2017-01-26] MEDS ORDERED: PHENYLephrine (100 MCG/ML) 5ML SYG ONE (10:40)
--- NOTE | 2017-01-26 10:53 | SIPON ---
Date/Time of Note Date/Time of Note DATE: 01/26/17 TIME: 10:52 Operative Report Preoperative Diagnosis Right knee osteoarthritis Postoperative Diagnosis same Operation/Procedure Performed Right total knee arthroplasty Surgeon MD Anil pediatric medical assistant Christopher Martínez Second assist: DAMION ALVARADO PA-C Anesthesia: spinal Estimated blood loss: 150 - 200 ml's Transfusion Required none Specimen bone Grafts/Implants [employer] size 6 femur, size 5 tibia, 35mm patella, 9mm poly Complications none MOR MARTIN MD Jan 26, 2017 10:53
--- NOTE | 2017-01-26 10:54 | PDOCDIS ---
Discharge Instructions DIAGNOSIS Discharge Diagnosis Status post right total knee arthroplasty CONDITION Patient Condition: Good HOME CARE INSTRUCTIONS: Diet Instructions: Regular ACTIVITY: Activity Restrictions: Slowly Increase Activity Rest between Activity Avoid heavy lifting No Sexual Activity Do not Drive Do not operate Machinery Do not operate Power Tool Avoid Heavy Housework Keep Limb Elevated (2-3 pillows under the foot/ankle only. May use cold therapy while resting.) Weight Bearing (Weight-bear as tolerated with front wheeled walker.) FOLLOW UP/APPOINTMENTS Follow-up Plan Follow-up at postoperative appointment provided to you at your preoperative visit. DAMION ALVARADO PA-C Jan 26, 2017 10:54
[2017-01-26] MEDS: SOD CHLORIDE 0.9% 1,000 ML IV SCH ×3 (10:55→23:25)
[2017-01-26] MEDS ORDERED: SUGAMMADEX SODIUM 200 MG/2 ML VIAL IV ONE (10:59)
[2017-01-26] MEDS ORDERED: DIPHENHYDRAMINE 50 MG INJ IM PRN (11:00)
[2017-01-26] MEDS ORDERED: MAGNESIUM HYDROXIDE 30ML CUP PO PRN (11:00)
[2017-01-26] MEDS ORDERED: DOCUSATE SODIUM 100 MG CAP PO ONE (11:00)
[2017-01-26] MEDS ORDERED: BETHANECHOL 25 MG TAB PO PRN (11:00)
[2017-01-26] MEDS ORDERED: ASPIRIN (EC) 325 MG TAB PO ONE (11:00)
[2017-01-26] MEDS ORDERED: BISACODYL 10 MG SUPP PR PRN (11:00)
[2017-01-26] MEDS ORDERED: SENNA/DOCUSATE NA (8.6MG/50MG) TAB PO PRN (11:00)
[2017-01-26] MEDS ORDERED: oxyCODONE 5 MG TAB PO PRN (11:00)
[2017-01-26] MEDS ORDERED: NA PHOSPHATE/BIPHOS 133 ML ENEMA PR PRN (11:00)
[2017-01-26] MEDS: ONDANSETRON 4 MG INJ IV SCH ×3 (12:00→23:47)
[2017-01-26] MEDS: CEFAZOLIN 1 GM/50 ML (PMX) 50 ML IVPB SCH ×2 (12:07→18:11)
--- NOTE | 2017-01-26 12:18 | RADRPT ---
PROCEDURE: XR knee CLINICAL INDICATION: Right knee replacement TECHNIQUE: AP and lateral portable views of the right knee COMPARISON: Bilateral knee radiograph series 06/25/2016 FINDINGS: Interval right knee replacement. Hardware is intact. Alignment is within normal limits. Soft tissue swelling and gas most likely is post operative. No other significant interval changes seen. IMPRESSION: 1. Status post right knee replacement with postoperative changes RPTAT: TT Physician Araceli Date Time Electronically viewed and signed by Bob Pinedo Physician on 01/26/2017 12:17 JS/
[2017-01-26] MEDS: oxyCODONE 5 MG TAB PO PRN ×2 (13:24→23:54)
--- NOTE | 2017-01-26 13:58 | OPR ---
Date/Time of Note Date/Time of Note DATE: 01/26/17 TIME: 13:52 Operative Report Procedure Date: Jan 26, 2017 Preoperative Diagnosis Right Knee Osteoarthritis Postoperative Diagnosis Same Operation/Procedure Performed 1. Right Total Knee Arthroplasty, CPT 09285 2. Computer assisted navigational procedure, CPT 47384 Surgeon Mor Martin MD Development Professional Christopher Martínez Second Development Professional: DAMION ALVARADO PA-C Anesthesia Type: spinal Anesthesiologist: Lefty Cartagena M.D. Tourniquet Time: 94 minutes @275mm Hg Estimated Blood Loss: 150 - 200 ml's Transfusion none Specimen Bone Grafts/Implants Melgoza Nephew Brie II Size 5 tibia, Legion Size 6 Femoral Component, 35mm patella, 9mm posterior stabilized poly Complications none Procedure Description INDICATION FOR PROCEDURE: This is a 51-year-old male with endstage osteoarthritis of the right knee who had failed nonoperative management. Risks , benefits, alternatives of surgical intervention were discussed with the patient and informed consent was obtained. The risks of surgery include but are not limited to infection, deep venous thrombosis, pulmonary embolism, damage to neurovascular structures, wound healing problems, loosening of prosthesis, where of prosthesis, need for revision surgery, stiffness, need for blood transfusion, heart attack, stroke, risks associated with anesthesia and even . DETAILS OF PROCEDURE: The patient was met in the preoperative suite. The correct operative site was confirmed and marked. He was then brought into operating room. After induction of spinal anesthesia, he was placed in the supine position on the operating room table. A tourniquet was applied to the right upper thigh. The right lower extremity was prepped and draped in the usual sterile fashion. Before starting, a timeout was taken to identify the correct operative site and confirm that preoperative antibiotics consisting of 1 gram of IV Ancef along with 1 gram of tranexamic acid were administered. At this point, the right leg was then elevated and exsanguinated and the tourniquet was then insufflated for the above-noted time. A midline incision was made and a median parapatellar arthrotomy was then completed. The lateral patellar retinacular ligaments were released and the patella was retracted laterally. The sleeve of tissue was released from the proximal medial tibia. The cruciate and the menisci were excised along with the suprapatellar fat pad. The intramedullary hole was drilled into the femur and the femoral wesley was attached to the anterior cutting block set at 5 degrees of valgus. The block was then pinned into position and the distal femoral cut was then made, taking 9.5 mm of distal femur initially with additional 2mm due to his flexion contracture. All the osteophytes were removed. The femur was sized to a size 6. The 4-in-1 cutting block was pinned and the anterior posterior condylar cuts followed by the anterior and posterior chamfer cuts were then completed. At this point, the tibia was subluxed anteriorly. With the use of the navigation, Insightly, the slope was set at 4 degrees with 0 degrees of varus and valgus, 2 mm was resected off the medial tibial plateau and 8 mm off the lateral tibial plateau. The gap tool drawing checker was used and noted to have equal extension and flexion gaps. The tibia was then subluxed anteriorly and sized to a size 5. The tibial tray was then pinned and the keel was punched. Next, the femoral component was placed and the femoral box cut was then completed. At this point, the patella was sized to 22 mm and 8 mm was resected. The patella was sized to 35 mm. The holes for the patellar button were placed, the trial insert and components were placed using a 9 mm insert. The leg was noted to be in full extension and greater than 120 degrees of flexion. The knee was stable to varus valgus stress with excellent patellar tracking. Trial components were removed. All bony surfaces were pulse lavaged and dried. The appropriate size components were brought into the field and cemented with the removal of excess cement. The knee was held in extension until the cement had cured. At this point, the tourniquet was deflated. The tranexamic acid and antibiotics were redosed. Once the cement had cured the trial polyethylene was removed and the appropriate size 9 mm posterior stabilized polyethylene was placed. Hemostasis was obtained. Arthrotomy was closed using a #1 Vicryl in interrupted [id number] fashion followed by closure of subcutaneous tissue with 2-0 Vicryl and the skin with 3-0 Monocryl in subcuticular fashion. Steri- Strips and sterile dressing was applied followed by a cold pack and Fernando wrap. The patient was awakened and taken to postoperative care unit in stable condition. POSTOPERATIVE CARE: He will be weightbearing as tolerated. He will work with physical therapy. He will receive 2 additional doses of IV Ancef along with aspirin 325 mg p.o. b.i.d. for 6 weeks. Upon discharge, he will follow up at the [facility] within 2 weeks postoperatively. MOR MARTIN MD Jan 26, 2017 13:58
[2017-01-27 02:00] VITALS: BP_SYST 111; BP_SYST 129; BP_DIAS 53; BP_DIAS 77; RESP 18
[2017-01-27] MEDS: SOD CHLORIDE 0.9% 1,000 ML IV SCH (02:51)
[2017-01-27] MEDS: CEFAZOLIN 1 GM/50 ML (PMX) 50 ML IVPB SCH (02:51)
[2017-01-27] MEDS: ONDANSETRON 4 MG INJ IV SCH (05:35)
[2017-01-27] MEDS: oxyCODONE 5 MG TAB PO PRN ×4 (05:39→19:30)
[2017-01-27] MEDS ORDERED: KETOROLAC 15 MG INJ IV PRN (06:00)
[2017-01-27 08:07] VITALS: BP 130/76; RESP 17
--- NOTE | 2017-01-27 08:08 | PN ---
Date/Time of Note Date/Time of Note DATE: 01/27/17 TIME: 08:06 Assessment/Plan VTE Prophylaxis VTE Prophylaxis Intervention: ambulation, SCD's, other (Aspirin 325 mg) Lines/Catheters IV Catheter Type (from Nrsg): Peripheral IV Garcia in Place (from Nrsg): Yes Assessment/Plan Assessment/Plan -Pain Meds as needed -ASA for DVT Prophylaxis x 6 weeks outpatient discussed. -Continue monitoring as outpatient on discharge -Follow-up at scheduled postop outpatient appointment or sooner if there is any issue. -Patient Stable -Discharge to Home with home health Subjective 24 Hr Interval Summary 51-year-old male postop day 1 status post right total knee arthroplasty. Denies any pain complaints. Denies any acute overnight events. Denies any chest pain/tightness, shortness of breath or calf pain. Has initiated physical therapy on the day of surgery. Resting comfortably currently. Constitutional: no complaints Pain Control: well controlled Exam/Review of Systems Vital Signs Vitals Vital Signs Date Time Temp Pulse Resp B/P Pulse Ox O2 Delivery O2 Flow Rate FiO2 01/27/17 02:00 97.7 98 18 129/77 96 01/26/17 20:00 Nasal Cannula 2.0 Intake and Output 01/26/17 01/26/17 01/27/17 15:00 23:00 07:00 Intake Total 5000 ml 1200 ml 530 ml Output Total 300 ml 700 ml 1000 ml Balance 4700 ml 500 ml -470 ml Exam Free Text/Dictation -No complications with dressing intact. -5/5 Tibialis Anterior, EHL Gastrocnemius/Soleus and Peroneals -Normal Sensation -Palpable DP/PT, Capillary Refill <2 secs -No Distal Edema -Negative Justine Sign/No calf pain -Toes Freely Movable Constitutional: alert, oriented, well developed DAMION ALVARADO PA-C Jan 27, 2017 08:08
[2017-01-27] MEDS: FERROUS FUMARATE (SR) TAB PO SCH ×2 (08:37→20:19)
[2017-01-27] MEDS: ASPIRIN (EC) 325 MG TAB PO SCH ×2 (08:37→20:20)
[2017-01-27] MEDS: DOCUSATE SODIUM 100 MG CAP PO SCH ×2 (08:38→20:19)
[2017-01-27] MEDS: CELECOXIB 200 MG CAP PO SCH ×2 (08:38→20:20)
[2017-01-27 09:46] LABS: ADD UMIC YES; UR ASCORBIC ACID NEGATIVE (NEGATIVE); UR BILIRUBIN (Dip) NEGATIVE (NEGATIVE); UR BLOOD (Dip) 3+ mg/dL (NEGATIVE); UR CLARITY CLEAR (CLEAR); UR COLOR YELLOW (YELLOW); UR GLUCOSE (Dip) 1+ mg/dL (NEGATIVE); UR KETONES (Dip) NEGATIVE (NEGATIVE); UR LEUKOCYTE ESTERASE (Dip) NEGATIVE Leu/ul (NEGATIVE); UR MUCUS FEW /HPF (NONE SEEN); UR NITRITE (Dip) NEGATIVE (NEGATIVE); UR RBC > 182 /HPF (0-5); UR SPECIFIC GRAVITY (Dip) 1.024 (1.003-1.030); UR TOTAL PROTEIN (Dip) 1+ mg/dl (NEGATIVE); UR UROBILINOGEN (Dip) NEGATIVE (NEGATIVE)
[2017-01-27 09:48] LABS: ABNORMAL IP MESSAGE 1; BASOPHILS % 0.1 % (0.0-2.0); HEMATOCRIT 38.8 % (42.0-52.0); HEMOGLOBIN 12.9 g/dl (14.0-18.0); LYMPHOCYTES # 1.1 10^3/ul (0.8-2.9); LYMPHOCYTES % 6.6 % (15.0-51.0); MEAN CORPUSCULAR HEMOGLOBIN 30.1 pg (29.0-33.0); MEAN CORPUSCULAR HGB CONC 33.2 g/dl (32.0-37.0); MEAN CORPUSCULAR VOLUME 90.7 fl (82.0-101.0); MEAN PLATELET VOLUME 9.3 fl (7.4-10.4); MONOCYTE # 1.6 10^3/ul (0.3-0.9); MONOCYTES % 9.2 % (0.0-11.0); NEUTROPHIL # 14.5 10^3/ul (1.6-7.5); NEUTROPHILS % 83.7 % (39.0-77.0); PLATELET COUNT 203 10^3/UL (140-415); POSITIVE DIFF @See below; RED BLOOD COUNT 4.28 10^6/ul (4.70-6.10); RED CELL DISTRIBUTION WIDTH 11.9 % (11.5-14.5); WHITE BLOOD COUNT 17.3 10^3/ul (4.8-10.8)
[2017-01-27 10:42] LABS: POTASSIUM 4.3 mmol/L (3.5-5.1)
[2017-01-27 10:43] LABS: CALCIUM 8.4 mg/dl (8.4-10.2); CREATININE 0.85 mg/dl (0.61-1.24)
[2017-01-27 14:00] VITALS: BP 131/78; RESP 18
[2017-01-27 19:37] VITALS: BP 159/91; RESP 22
[2017-01-28] MEDS ORDERED: PANTOPRAZOLE (EC) 40 MG TAB PO SCH (06:00)
--- NOTE | 2017-01-28 07:32 | DS ---
Date/Time of Note Date/Time of Note DATE: 01/28/17 TIME: 07:31 Discharge Summary Admission/Discharge Info Admit Date/Time Jan 26, 2017 at 05:32 Discharge Date/Time Jan 27, 2017 at 20:35 Discharge Diagnosis Status post right total knee arthroplasty Patient Condition: Good Hospital Course On the day of admission, the patient underwent right total knee arthroplasty Intraoperative complications: None Postoperative complications: None The patient was given prophylactic antibiotics and anticoagulants. On the day of surgery and first postoperative day patient was started on gait training and was taught usual restrictions following knee replacement On postoperative day 1 dressing was clean dry and intact. No complications were observed. On the day of discharge, the wound was clean and healing well; there was no sign of infection. Wound care instructions were discussed with the patient. Discharge Temperature: 98.7 Discharge White Blood Cell Count: 17.3 Discharge Hemoglobin: 12.9 The patient was discharged home with home health. Arrangements were made for visiting nurses and home health/physical therapy. The patient will be seen in office at scheduled postoperative evaluation date given on their preoperative exam. Should patient complain of any problems prior to scheduled postoperative evaluation date, they may call into outpatient clinic to determine if they need to be scheduled at sooner appointment to be seen immediately if needed. Discharge medications: As per medication reconciliation form Diet: Same as preadmission diet. This is Damion Sanchez PA-C dictating discharge summary for Dr. Boo Mcclure. Home Meds Active Scripts Hydrocodone/Acetaminophen ([place] 5-325 Tablet) 1 Each Tablet, 1 EACH PO Q8 Y for PAIN for 7 Days, #21 TAB Prov:ALE AYOUB 09/17/16 [Trimethoprim/Sulfamethox (Ds)] 1 TAB TAB No Conflict Check, 1 TAB PO BID for 10 Days, #20 TAB Prov:ALE AYOUB 09/17/16 Cephalexin* (Cephalexin*) 500 Mg Capsule, 500 MG PO Q6 for 10 Days, #40 CAP Prov:ALE AYOUB 09/17/16 Follow-up Plan Follow-up at postoperative appointment provided to you at your preoperative visit. Primary Care Provider Aamir Abad Pending Labs Laboratory Tests Test 01/27/17 09:25 White Blood Count 17.310^3/ul (4.8-10.8) Red Blood Count 4.2810^6/ul (4.70-6.10) Hemoglobin 12.9g/dl (14.0-18.0) Hematocrit 38.8% (42.0-52.0) Mean Corpuscular Volume 90.7fl (82.0-101.0) Mean Corpuscular Hemoglobin 30.1pg (29.0-33.0) Mean Corpuscular Hemoglobin Concent 33.2g/dl (32.0-37.0) Red Cell Distribution Width 11.9% (11.5-14.5) Platelet Count 60911^3/UL (140-415) Mean Platelet Volume 9.3fl (7.4-10.4) Neutrophils % 83.7% (39.0-77.0) Lymphocytes % 6.6% (15.0-51.0) Monocytes % 9.2% (0.0-11.0) Eosinophils % 0.0% (0.0-7.0) Basophils % 0.1% (0.0-2.0) Nucleated Red Blood Cells % 0.0/100WBC (0.0-0.0) Neutrophils # 14.510^3/ul (1.6-7.5) Lymphocytes # 1.110^3/ul (0.8-2.9) Monocytes # 1.610^3/ul (0.3-0.9) Eosinophils # 0.010^3/ul (0.0-0.5) Basophils # 0.010^3/ul (0.0-0.1) Nucleated Red Blood Cells # 0.010^3/ul (0.0-0.0) Sodium Level 139mmol/L (135-144) Potassium Level 4.3mmol/L (3.5-5.1) Chloride Level 102mmol/L (97-110) Carbon Dioxide Level 27mmol/L (21-31) Anion Gap 14 (8-16) Blood Urea Nitrogen 14mg/dl (7-20) Creatinine 0.85mg/dl (0.61-1.24) Glucose Level 101mg/dl (70-220) Calcium Level 8.4mg/dl (8.4-10.2) DAMION ALVARADO PA-C Jan 28, 2017 07:32
== END 2017-01-27 20:35 | disposition home health service (06) | DRG 470 ==
LOC: REC 05:32 → EDSTATUS 07:30 → MS1 12:58
PROVIDERS: ADMIT Orthopaedic Surgery Adult Reconstructive Orthopaedic Surgery; ATTEND Orthopaedic Surgery Adult Reconstructive Orthopaedic Surgery
PROC: 0SRC0J9 Replacement of Right Knee Joint with Synthetic Substitute, Cemented, Open Approach (ICD-10-PCS; principal; 2017-01-26 07:30)
DX: M17.11 Unilateral primary osteoarthritis, right knee (principal)
CPT/HCPCS: 73560; 80048; 81001; 85025; 86850; 86900; 86901; 86920; 87086; 88304; 88311; 97116; 97162; 97166; 97530; J0131; J0171; J0690; J0697; J0735; J1100; J1885; J2250; J2274; J2370; J2405; J2710; J2795; J3010; J7030; J7120; P9045

== ENCOUNTER → 2017-02-03 | Outpatient (CLI) | payer OTHER ==
--- NOTE | 2017-02-03 14:57 | RADRPT ---
PROCEDURE: Right knee radiographs. CLINICAL INDICATION: Right knee pain. Postop. TECHNIQUE: Three views. Weight bearing. Frontal, lateral, and patellar view. COMPARISON: 01/26/2017. FINDINGS: There is no fracture or dislocation. There is diffuse soft tissue swelling. There is a total right knee arthroplasty which appears satisfactory. There is no lytic or blastic lesion. IMPRESSION: 1. Diffuse soft tissue swelling. 2. Otherwise unremarkable postoperative appearance of the right knee. RPTAT: QQ .Edmar Bermeo MD, MD Date Time Electronically viewed and signed by .Edmar Bermeo MD, on 02/03/2017 14:57 .R/
--- NOTE | 2017-02-03 15:24 | PN ---
Date/Time of Note Date/Time of Note DATE: 02/03/17 TIME: 15:17 Outpatient Progress Note Chief Complaint Postop status post right total knee arthroplasty HPI 51-year-old male presents today for postop status post total knee arthroplasty on the right side on 01/26/2017. Patient is scheduled earlier appointment due to severe pain exacerbation. Patient has also noticed that wound to the most superior pole has "opened." Denies any redness, discharge. Patient denies any chest pain/tightness, shortness of breath, calf pain. He is experiencing increased pain, mainly at night after weightbearing throughout the day. Patient is scheduled to initiate physical therapy tomorrow. Currently being monitored by home health nurse. Review of Systems Const: No Fever, no chills, no Fatigue, normal appetite, no diaphoresis. Resp: No SOB, no wheezing, no chest pain. CV: No chest pain, no palpitaions, no VAN. Physical Exam Blood pressure is 142/77, temperature is 97.9, pulse is 95, respiratory rate is 12, height is 5 foot 9 inches, weight is 260 pounds General Appearance: well-developed, well-nourished, in no acute distress. Right knee: On inspection there is small wound dehiscence to the superior pole surgical wound to the right knee. No discharge. Small bleeding. No surrounding erythema. Area is not warm to touch. No tenderness to palpation or area of dehiscence. Mild tenderness to palpation that is generalized throughout the knee per patient complain on palpation. Patient is able to flex up to 100 today with discomfort. About 5-10 lag from full extension. Normal sensory examination to light touch. Gait is abnormal and antalgic with assisted ambulation using front wheeled walker. Imaging: X-ray of the Right knee performed on 02/03/2017 showing all components appearing well aligned, attached and integrated to the bone. No signs of any lucency between metal and bone. Allergies Coded Allergies: No Known Allergy (Unverified , 09/16/16) Assessment/Plan Problems: (1) Status post right knee replacement (2) Wound dehiscence * At the area of wound dehiscence area was cleaned with Betadine swab. 1% lidocaine injected to the region for local anesthesia. After local anesthesia was achieved 3-0 Ethilon Suture used to close the wound. 2 sutures applied. Wound care discussed today. * Prescription for oxycodone provided for the patient as needed severe pain. * Continue with physical therapy scheduled to start tomorrow. * Patient will follow up on 02/06/2017 for repeat evaluation and monitoring of wound. Area clean and dry. No water introduced to surgical site. * Continue with DVT prophylaxis. Dr. Ma was present for examination and agrees with plan. Medications Home Meds Active Scripts Hydrocodone/Acetaminophen ([place] 5-325 Tablet) 1 Each Tablet, 1 EACH PO Q8 Y for PAIN for 7 Days, #21 TAB Prov:ALE AYOUB 09/17/16 [Trimethoprim/Sulfamethox (Ds)] 1 TAB TAB No Conflict Check, 1 TAB PO BID for 10 Days, #20 TAB Prov:ALE AYOUB 09/17/16 Cephalexin* (Cephalexin*) 500 Mg Capsule, 500 MG PO Q6 for 10 Days, #40 CAP Prov:ALE AYOUB 09/17/16 DAMION ALVARADO PA-C Feb 03, 2017 15:24
== END | disposition home or self-care (01) ==
LOC: HKI 14:44
PROVIDERS: ATTEND Orthopaedic Surgery Adult Reconstructive Orthopaedic Surgery
DX: T81.30XA Disruption of wound, unspecified, initial encounter (principal); Y83.8 Other surgical procedures as the cause of abnormal reaction of the patient, or of later complication, without mention of misadventure at the time of the procedure

== ENCOUNTER → 2017-02-07 | Outpatient (CLI) | END | disposition home or self-care (01) ==

== ENCOUNTER → 2017-03-08 | Outpatient (CLI) | END | disposition home or self-care (01) ==

== ENCOUNTER → 2017-03-14 | Outpatient (CLI) | END | disposition home or self-care (01) ==

== ENCOUNTER 2017-09-27 12:27 | Emergency (ER) | END 2017-09-27 15:46 | disposition home or self-care (01) ==

== ENCOUNTER 2017-10-01 22:45 | Emergency (ER) | END 2017-10-02 02:08 | disposition home or self-care (01) ==

== ENCOUNTER → 2018-02-06 | Outpatient (CLI) | END | disposition home or self-care (01) ==

== ENCOUNTER 2018-10-25 05:46 | Inpatient (IN) | payer OTHER ==
[2018-10-25] VITALS (25 sets, daily range): BP systolic 106–157; BP diastolic 40–92; PULSE 18–105; RESP 13–22; Ht 175.3 cm; Wt 119.8 kg
[~2018-10-25] VITALS: Ht 175.3 cm; Wt 119.8 kg
[~2018-10-25 05:46] MED LIST changes: +AMOX1TAB10 PO; +ASPI-1044 PO; +CHOL100062 PO; +CYAN50TA PO; +DOCU-144 PO; +HYDR-4011 PO; -HYDR-906 PO; +OXYC-481 PO; +POLY17PO6 PO; +PYRI50TA15 PO
[2018-10-25] MEDS ORDERED: POLYMYXIN B 500000 UNIT INJ ONE (06:55)
[2018-10-25] MEDS ORDERED: ACETAMINOPHEN 1000MG/100ML IV 100 ML IVPB ONE (07:00)
[2018-10-25] MEDS ORDERED: TRANEXAMIC ACID 1GM/100ML(PMX) 200 ML ONE (07:12)
[2018-10-25] MEDS ORDERED: BACITRACIN 50000 UNITS INJ IRR ONE (07:28)
[2018-10-25] MEDS ORDERED: TRANEXAMIC ACID 1 GM/100 ML (PMX) ONE (08:00)
[2018-10-25] MEDS ORDERED: MIDAZOLAM 1 MG/ML 2 ML INJ ONE (08:01)
[2018-10-25] MEDS ORDERED: morphine SULFATE/PF (10 MG/10 ML) INJ ONE (08:01)
[2018-10-25] MEDS ORDERED: DEXAMETHASONE 4 MG/ML 5 ML INJ ONE (08:32)
[2018-10-25] MEDS ORDERED: ROCURONIUM 50 MG INJ ONE (08:32)
[2018-10-25] MEDS ORDERED: METOCLOPRAMIDE 10 MG INJ ONE (08:32)
[2018-10-25] MEDS ORDERED: PROPOFOL 20 ML ONE (08:32)
[2018-10-25] MEDS ORDERED: KETOROLAC 30 MG INJ ONE (08:32)
[2018-10-25] MEDS ORDERED: CEFAZOLIN 1 GM INJ ONE (08:32)
[2018-10-25] MEDS ORDERED: ONDANSETRON 4 MG INJ ONE (08:32)
[2018-10-25] MEDS ORDERED: ROPIVACAINE 0.2% 20 ML VIAL ONE (08:33)
[2018-10-25] MEDS ORDERED: ACETAMINOPHEN 500 MG TAB PO ONE (09:00)
[2018-10-25] MEDS ORDERED: oxyCODONE (CR) 10 MG TAB [oxyCONTIN] PO ONE (09:00)
[2018-10-25] MEDS ORDERED: ONDANSETRON 4 MG INJ IV ONE (09:00)
[2018-10-25] MEDS ORDERED: CEFAZOLIN 1 GM/NS 50 ML X 1 IVPB ONE (09:00)
[2018-10-25] MEDS ORDERED: LANSOPRAZOLE 30 MG CAP PO ONE (09:00)
[2018-10-25] MEDS ORDERED: DEXAMETHASONE 4 MG/ML 1 ML INJ IV ONE (09:00)
[2018-10-25] MEDS ORDERED: EPHEDrine 25 MG/5 ML SYG ONE (09:19)
[2018-10-25] MEDS ORDERED: HETASTARCH 6% NACL 500 ML ONE (09:19)
[2018-10-25] MEDS ORDERED: SUGAMMADEX SODIUM 200 MG/2 ML VIAL IV ONE (10:41)
[2018-10-25] MEDS ORDERED: NACL 0.9% 3 ML SYG IV SCH (11:00)
[2018-10-25] MEDS ORDERED: DIPHENHYDRAMINE 50 MG INJ IV PRN ×2 (11:00)
[2018-10-25] MEDS ORDERED: KETOROLAC 15 MG INJ IV PRN (11:00)
[2018-10-25] MEDS: ONDANSETRON 4 MG INJ IV SCH ×3 (11:00→22:46)
[2018-10-25] MEDS ORDERED: HYDROmorphONE 1 MG/5 ML IV SYRINGE IV PRN ×2 (11:00)
[2018-10-25] MEDS ORDERED: NALOXONE (0.4 MG/ML) INJ IV PRN ×2 (11:00)
[2018-10-25] MEDS ORDERED: ACETAMINOPHEN 500 MG TAB PO PRN (11:00)
[2018-10-25] MEDS ORDERED: SENNA/DOCUSATE NA (8.6MG/50MG) TAB PO PRN (11:00)
[2018-10-25] MEDS ORDERED: EPHEDrine 25 MG/5 ML SYG IV PRN (11:00)
[2018-10-25] MEDS ORDERED: FENTAnyl 50 MCG/ML VIAL IV PRN ×2 (11:00)
[2018-10-25] MEDS ORDERED: OXYCODONE/ACETAMINOPHEN (5/325) TAB PO PRN ×2 (11:00)
[2018-10-25] MEDS ORDERED: CEFAZOLIN 2 GM/50 ML (PMX) 50 ML IVPB SCH (11:00)
[2018-10-25] MEDS ORDERED: DOCUSATE SODIUM 100 MG CAP PO ONE (11:00)
[2018-10-25] MEDS ORDERED: HYDROCODONE/APAP (5/325) TAB PO PRN (11:00)
[2018-10-25] MEDS ORDERED: ONDANSETRON 4 MG INJ IV PRN ×2 (11:00)
[2018-10-25] MEDS ORDERED: NA PHOSPHATE/BIPHOS 133 ML ENEMA PR PRN (11:00)
[2018-10-25] MEDS ORDERED: METOCLOPRAMIDE 10 MG INJ IV PRN (11:00)
[2018-10-25] MEDS ORDERED: LABETALOL HCL 20MG INJ IV PRN (11:00)
[2018-10-25] MEDS ORDERED: HYDROmorphONE 0.5 MG/0.5 ML SYG IV PRN ×2 (11:00)
[2018-10-25] MEDS ORDERED: MEPERIDINE 25 MG INJ IV PRN (11:00)
[2018-10-25] MEDS ORDERED: BISACODYL 10 MG SUPP PR PRN (11:00)
[2018-10-25] MEDS ORDERED: morphine 2 MG INJ IV PRN ×2 (11:00)
[2018-10-25] MEDS ORDERED: hydrALAzine 20 MG INJ IV PRN (11:00)
[2018-10-25] MEDS ORDERED: MAGNESIUM HYDROXIDE 30ML CUP PO PRN (11:00)
[2018-10-25] MEDS ORDERED: NALBUPHINE HCL (10 MG/1 ML) INJ IV PRN (11:00)
[2018-10-25] MEDS: GABAPENTIN 100 MG CAP PO SCH ×2 (14:20→21:09)
[2018-10-25] MEDS: LACTATED RINGER'S 1,000 ML IV SCH (14:20)
[2018-10-25] MEDS ORDERED: ALBUTEROL/IPRATROPIUM (NEB) 3 ML AMP HHN PRN (14:30)
[2018-10-25] MEDS: CEFAZOLIN 2 GM/50 ML (PMX) 50 ML IVPB SCH ×2 (15:04→22:44)
[2018-10-25] MEDS ORDERED: PAIN COCKTAIL VANCO INJ SCH ×7 (16:00)
[2018-10-25] MEDS: CHOLECALCIFEROL 1,000 UNIT TAB PO SCH (17:16)
[2018-10-25] MEDS: PYRIDOXINE 50 MG TAB PO SCH (17:17)
[2018-10-25] MEDS: CYANOCOBALAMIN 100 MCG TAB PO SCH (17:17)
[2018-10-25] MEDS: KETOROLAC 30 MG INJ IV PRN (21:09)
[2018-10-26 00:59] VITALS: BP 117/60; PULSE 88; RESP 20
[2018-10-26] MEDS: CEFAZOLIN 2 GM/50 ML (PMX) 50 ML IVPB SCH (06:10)
[2018-10-26] MEDS: KETOROLAC 30 MG INJ IV PRN (06:11)
[2018-10-26] MEDS: ONDANSETRON 4 MG INJ IV SCH (06:11)
[2018-10-26 07:26] VITALS: BP 102/64; PULSE 72; RESP 17
[2018-10-26] MEDS: LACTATED RINGER'S 1,000 ML IV SCH (07:30)
[2018-10-26] MEDS: CYANOCOBALAMIN 100 MCG TAB PO SCH (08:33)
[2018-10-26] MEDS: PYRIDOXINE 50 MG TAB PO SCH (08:33)
[2018-10-26] MEDS: GABAPENTIN 100 MG CAP PO SCH ×2 (08:34→12:26)
[2018-10-26] MEDS: oxyCODONE 5 MG TAB PO PRN ×3 (08:34→16:25)
[2018-10-26] MEDS: CHOLECALCIFEROL 1,000 UNIT TAB PO SCH (08:34)
[2018-10-26] MEDS ORDERED: DOCUSATE SODIUM 100 MG CAP PO SCH (09:00)
[2018-10-26] MEDS ORDERED: CELECOXIB 100 MG CAP PO SCH (09:00)
[2018-10-26] MEDS ORDERED: ASPIRIN (EC) 81 MG TAB PO SCH (09:00)
[2018-10-26] MEDS ORDERED: MAGNESIUM SULFATE 2 GM/50 ML 50 ML IVPB ONE (12:00)
[2018-10-26 13:57] VITALS: BP 111/63; PULSE 71; RESP 18
[2018-10-26 20:18] VITALS: BP 128/75; PULSE 77; RESP 20
[2018-10-27] MEDS ORDERED: PANTOPRAZOLE (EC) 40 MG TAB PO SCH (06:00)
== END 2018-10-26 20:00 | disposition home health service (06) | DRG 470 ==
LOC: REC 05:46 → EDSTATUS 07:30 → MS1 12:57
PROVIDERS: ADMIT Orthopaedic Surgery Adult Reconstructive Orthopaedic Surgery; ATTEND Orthopaedic Surgery Adult Reconstructive Orthopaedic Surgery
PROC: 0SRD069 Replacement of Left Knee Joint with Oxidized Zirconium on Polyethylene Synthetic Substitute, Cemented, Open Approach (ICD-10-PCS; principal; 2018-10-25 07:30)
DX: M17.12 Unilateral primary osteoarthritis, left knee (principal); E66.01 Morbid (severe) obesity due to excess calories; Z68.39 Body mass index [BMI] 39.0-39.9, adult; D64.9 Anemia, unspecified; E55.9 Vitamin D deficiency, unspecified; F17.200 Nicotine dependence, unspecified, uncomplicated; Z79.82 Long term (current) use of aspirin
CPT/HCPCS: 73560; 80048; 83735; 85025; 87081; 88304; 88311; 97116; 97162; 97530; A4310; C1713; C1776; J0131; J0171; J0690; J0735; J1100; J1885; J2250; J2274; J2405; J2765; J2795; J3370; J3475; J7120